=== PATIENT | male | born 1995 | race Caucasian/White ===

== ENCOUNTER 2018-03-21 01:24 | Day surgery (SDC) | payer BC ==
[~2018-03-21] VITALS: Ht 180.3 cm; Wt 107.5 kg
[~2018-03-21 01:24] MED LIST: HYDR-653 PO
[2018-03-21] MEDS ORDERED: ceFAZolin(*) 2GM/D5W 50ML 50 ML IVPB ONE (06:30)
[2018-03-21] MEDS ORDERED: LIDOCAINE/SOD BICARB 8.4% SYR ID ONE (07:20)
[2018-03-21] MEDS ORDERED: FAMOTIDINE 20 MG TAB PO ONE (07:20)
[2018-03-21] MEDS ORDERED: NORMOSOL R SOLN(*) 1000 ML BAG 1,000 ML IV PRN (07:20)
[2018-03-21] MEDS ORDERED: MIDAZOLAM 2 MG/2 ML VIAL IVP PRN (07:20)
[2018-03-21 07:22] VITALS: BP 121/78
[2018-03-21] MEDS ORDERED: fentaNYL CITR 250 MCG/5 ML AMP ONE (07:29)
[2018-03-21] MEDS ORDERED: KETAMINE HCL 200 MG/20 ML MDV ONE (07:30)
[2018-03-21] MEDS ORDERED: PROPOFOL EMUL(*) 10MG/ML 20 ML 20 ML ONE (07:30)
[2018-03-21] MEDS ORDERED: LIDOCAINE MPF 1% 5 ML VIAL ONE ×2 (07:30)
[2018-03-21] MEDS ORDERED: ONDANSETRON 4 MG/2 ML VIAL ONE (07:30)
[2018-03-21] MEDS ORDERED: DEXAMETHASONE SOD PHOS 10MG/ML ONE (07:30)
[2018-03-21] MEDS ORDERED: SUGAMMADEX SOD 200 MG/2 ML SDV ONE (07:32)
[2018-03-21] MEDS ORDERED: fentaNYL CITR 100 MCG/2 ML AMP ONE (08:29)
--- NOTE | 2018-03-21 08:44 | OPERATIVE REPORT 1 ---
EVENT DATE: March 21, 2018 SURGEON: Morgan Farley Jr., MD ANESTHESIOLOGIST: Narinder Groves MD ANESTHESIA: LMA. TOWEL FOLDER: PROCEDURE PERFORMED Tonsillectomy. PREOPERATIVE DIAGNOSIS Tonsillar hypertrophy. POSTOPERATIVE DIAGNOSIS Tonsillar hypertrophy. INDICATIONS Please refer to the preoperative note. DESCRIPTION OF PROCEDURE The patient was positively identified in the preoperative area. He was accompanied there by both parents. Risks and benefits were explained including, but not limited to, bleeding, infection and those associated with anesthesia. He acknowledged understanding those risks. He was then brought back to the operating suite, laid supine on the operating table and anesthesia was administered. Once asleep, the patient was positioned, prepped and draped in the usual sterile fashion. A McIvor Mouth Gag was placed in the patient's oral cavity. Red rubber catheter was placed through the right nostril and utilized to suspend the soft palate. The patient was noted to have 3+ tonsils. The right tonsil was grasped with curved Allis forceps and carefully dissected from the lateral pharyngeal wall with suction Bovie electrocautery. In a similar fashion, the contralateral tonsil was removed. Hemostasis was obtained with suction Bovie electrocautery. The patient was then returned to Anesthesia for emergence. ESTIMATED BLOOD LOSS 10 cc. COMPLICATIONS No complications. MTDD
[2018-03-21] MEDS ORDERED: OXYC-865 PO (08:51)
[2018-03-21] MEDS ORDERED: AMOX500T10 PO (08:54)
[2018-03-21] MEDS ORDERED: LIDO15SO2 PO (08:54)
[2018-03-21 09:15] VITALS: BP 153/85
[2018-03-21 09:32] VITALS: BP 148/109
[2018-03-21 09:36] VITALS: BP 149/105
[2018-03-21 09:44] VITALS: BP 157/78
== END 2018-03-21 09:15 | disposition home or self-care (01) ==
LOC: OR 01:24
PROVIDERS: ATTEND Otolaryngology
DX: J35.1 Hypertrophy of tonsils (principal)
CPT/HCPCS: 42826; 88304; J1100; J2001; J2250; J2405; J2704; J3010; J3490; J0690